=== PATIENT | male | born 2000 | race Hispanic/Latino ===

== ENCOUNTER 2019-03-30 13:17 | Outpatient (CLI) | payer OTHER ==
--- NOTE | 2019-03-30 13:36 | RAD ---
XR Hip Lt 2-3 View HISTORY: Left hip pain. No injury. Findings: There are no signs of fracture or dislocation. Joint spaces are well-preserved. No soft tis scott findings. IMPRESSION: Unremarkable left hip.
--- NOTE | 2019-03-30 13:37 | RAD ---
XR Lumbar Spine 2 Or 3 View HISTORY: Low back pain radiating to right hip COMPARISON: None. FINDINGS: The vertebral bodies are normal in height. Disc spaces appear well. No spondylolisthesis. P edicles are intact. IMPRESSION: Unremarkable lumbar spine series.
== END 2019-03-30 13:18 | disposition home or self-care (01) ==
LOC: BICRAD 13:17
PROVIDERS: ATTEND Family Medicine
DX: N62 Hypertrophy of breast (principal); M54.5 Low back pain; M25.552 Pain in left hip
CPT/HCPCS: 72100

== ENCOUNTER 2019-06-08 07:59 | Outpatient (CLI) | payer OTHER ==
--- NOTE | 2019-06-08 08:18 | ULT ---
LIMITED LEFT BREAST ULTRASUND: DATE: 06/08/2019. PROVIDED CLINICAL HISTORY: Left breast lump. FINDINGS: Limited sonographic interrogation was performed of the left breast in the retroareolar region. Navi rison images from the right retroareolar region were submitted. There is no evidence for mass. IMPRESSION: No sonographic evidence for mass to correspond to the area of reported palpable concern. Negative im aging findings should not preclude further evaluation of a clinical suspicious finding. The patient is referred back to his clinician. POS: OFF
== END 2019-06-08 08:00 | disposition home or self-care (01) ==
LOC: BICULT 07:59
PROVIDERS: ATTEND Family Medicine
DX: N62 Hypertrophy of breast (principal)

== ENCOUNTER 2022-01-10 14:10 | Emergency (ER) | payer OTHER | END 2022-01-10 16:14 | LOC: ERS 14:10 | DX: M25.562 Pain in left knee (principal) ==

== ENCOUNTER 2024-07-27 20:11 | Emergency (ER) | payer BC, SELFPAY ==
[2024-07-27] MEDS ORDERED: Ondansetron PF 4 MG/2 ML Vial ONE (20:18)
[2024-07-27 20:37] LABS: #Basophils 0.03 10x3/uL (0.0-0.2); %Basophils 0.3 % (0.0-1.0); %Eosinophils 0.9 % (0.0-10.0); %Lymphocytes 23.5 % (21.0-51.0); %Monocytes 8.8 % (0.0-10.0); %Neutrophils 66.2 % (42.0-75.0); Hematocrit 45.7 % (42.0-52.0); Hemoglobin 15.9 g/dL (14.0-18.0); Mean Corpuscular HGB CONC 34.8 g/dL (32.0-36.0); Mean Corpuscular Hemoglobin 30.4 pg (27.0-31.0); Mean Corpuscular Volume 87.4 fL (78.0-98.0); Platelet Count 246 10x3/uL (130-400); RBC Distribution Width 12.6 % (11.5-14.5); Red Blood Cell (RBC) Count 5.23 mill/uL (4.70-6.10)
[2024-07-27 20:52] LABS: ALT (SGPT) 49 U/L (8-55); AST (SGOT) 55 U/L (5-34); Albumin 4.3 g/dL (3.5-5.0); Alkaline Phosphatase 70 U/L (40-110); Anion Gap 14 mmol/L (10-20); BUN (Urea Nitrogen) 15 mg/dL (8.9-20.6); Bilirubin, Total 0.3 mg/dL (0.2-1.2); CK (CPK) 1762 U/L (30-200); Calc. Creatinine Clearance 0 mL/min (70-130); Calcium 9.3 mg/dL (7.8-10.44); Carbon Dioxide 25 mmol/L (22-29); Chloride 103 mmol/L (98-107); Estimated GFR 65; Globulin 3.7 g/dL (2.4-3.5); Glucose 116 mg/dL (70-105); Potassium 3.9 mmol/L (3.5-5.1); Sodium 138 mmol/L (136-145)
[2024-07-27 21:21] LABS: Bacteria/HPF None Seen HPF (None Seen); Bilirubin Negative (Negative); Blood, Urine Negative (Negative); CAUTI Indications for Culture Dysuria,urgency,freq; Clarity Clear (Clear); Glucose, Urine (Dipstick) Normal (Negative); Ketone, Urine Negative (Negative); Leukocyte Negative Leu/uL (Negative); Nitrite Negative (Negative); Protein, Urine (Dipstick) Negative (Neg-Trace); RBC/HPF 0-3 HPF (0-3); Specific Gravity, Urine 1.017 (1.002-1.036); Squamous Epithelial None Seen HPF (0-3); Urobilinogen Normal mg/dL (Less than 2); WBC/HPF 0-3 HPF (0-3); pH, Urine 6.5 (5.0-9.0)
[2024-07-27 21:27] LABS: Amphetamine Not Detected (NotDetected); Barbiturates Screen Not Detected (NotDetected); Benzodiazepine Screen Not Detected (NotDetected); Cocaine Metabolite Screen Not Detected (NotDetected); Methadone Not Detected (NotDetected); Methamphetamine Not Detected (NotDetected); Opiate Screen Not Detected (NotDetected); Oxycodone Screen Not Detected (NotDetected); Phencyclidine (PCP) Not Detected (NotDetected); THC/Cannabinoid Screen Not Detected (NotDetected); Tricyclic Screen Not Detected (NotDetected); Urine Culture Reflex No No
[2024-07-27 22:45] LABS: ALT (SGPT) 44 U/L (8-55); AST (SGOT) 48 U/L (5-34); Alkaline Phosphatase 64 U/L (40-110); Anion Gap 13 mmol/L (10-20); BUN (Urea Nitrogen) 15 mg/dL (8.9-20.6); Bilirubin, Total 0.2 mg/dL (0.2-1.2); CK (CPK) 1512 U/L (30-200); Calc. Creatinine Clearance 0 mL/min (70-130); Calcium 8.2 mg/dL (7.8-10.44); Carbon Dioxide 21 mmol/L (22-29); Chloride 109 mmol/L (98-107); Estimated GFR 72; Globulin 3.3 g/dL (2.4-3.5); Glucose 121 mg/dL (70-105); Potassium 3.8 mmol/L (3.5-5.1); Protein, Total 7.3 g/dL (6.0-8.3); Sodium 139 mmol/L (136-145)
== END 2024-07-27 23:13 | disposition home or self-care (01) ==
LOC: ERS 20:11
DX: E86.0 Dehydration (principal); N17.9 Acute kidney failure, unspecified; R74.8 Abnormal levels of other serum enzymes
CPT/HCPCS: 36415; 80053; 80306; 81001; 82550; 85025; 93005; 96361; 96374; J2405